=== PATIENT | female | born 1960 | race Caucasian/White ===

== ENCOUNTER 2019-03-31 10:45 | Emergency (ER) | payer BC, OTHER ==
[~2019-03-31] VITALS: Ht 160 cm; Wt 104.1 kg
--- NOTE | 2019-03-31 10:45 | NUR ---
PT BIBA ACLS TO BED 4
[2019-03-31 10:46] VITALS: BP 134/56
[2019-03-31] MEDS ORDERED: MORPHINE SULFATE 4 MG/ML SYR IVP ONE (10:50)
[2019-03-31] MEDS ORDERED: ONDANSETRON 4 MG/2 ML VIAL IVP ONE (10:50)
--- NOTE | 2019-03-31 11:00 | NUR ---
59 Y/O F BIB AMBULANCE. PT RECEIVED ZOFRAN AND FENTANYL BY AMBULACE, 20 G IV PLACED LT AC. PT HAS ABRASIONS ON HER FORHEAD, NOSE, RT HIP PAIN 8/10 WITH MOVEMENT. PT HAD A MECHANICAL FALL OUTSIDE OF HER HOME. LANDED ON CONCRETE ON HER RIGHT HIP AND FACE. PT ON 2L O2 NC. PT POSITIONED FOR COMFORT. SIDE RAIL X2 IN PLACE. AT BEDSIDE. NKA MEDHX: HTN
--- NOTE | 2019-03-31 11:14 | NUR ---
PT GIVEN ZOFRAN ONLY, PT HAD FENTANYL [address] HURLEY ORDERED TO HOLD MORPHINE AT THIS TIME.
--- NOTE | 2019-03-31 11:22 | NUR ---
PT TO CT BY NEEHMIAS.
--- NOTE | 2019-03-31 12:04 | NUR ---
RETURNED TO ROOM FROM CT
[2019-03-31] MEDS ORDERED: KETOROLAC 30 MG/ML VIAL IVP ONE (13:30)
[2019-03-31] MEDS ORDERED: CYCLOBENZAPRINE 10 MG TAB PO ONE (13:30)
--- NOTE | 2019-03-31 13:34 | NUR ---
PT REFUSED TO HAVE NEW IV PLACED FOR IVP TORADOL--WILLING TO HAVE TORADOL IM. WILL ASK DR. HURLEY.
--- NOTE | 2019-03-31 13:39 | NUR ---
PER DR. HURLEY VERBAL ORDERS, ADMIN TORADOL 30 MG IM ROUTE INSTEAD OF IVP.
--- NOTE | 2019-03-31 13:55 | NUR ---
Patient discharged with v/s stable. Written and verbal after care instructions given and explained. Patient alert, oriented and verbalized understanding of instructions. Wheel Chair Assisted TO LOBBY WITH AT SIDE. All questions addressed prior to discharge. ID band removed. Patient advised to follow up with PMD. Rx of FLEXERIL AND IBUPROFEN given. Patient educated on indication of medication including possible reaction and side effects. Opportunity to ask questions provided and answered.
[2019-03-31 13:57] VITALS: BP 134/56
== END 2019-03-31 13:55 | disposition home or self-care (01) ==
LOC: MED 10:45
DX: S39.012A Strain of muscle, fascia and tendon of lower back, initial encounter (principal); S70.01XA Contusion of right hip, initial encounter; S00.81XA Abrasion of other part of head, initial encounter; I10 Essential (primary) hypertension; W18.30XA Fall on same level, unspecified, initial encounter; Y93.B9 Activity, other involving muscle strengthening exercises; Y92.89 Other specified places as the place of occurrence of the external cause; Y99.8 Other external cause status
CPT/HCPCS: 70450; 70486; 72100; 72220; 73502; 96374; 96375; 99284; J1885; J2270; J2405